=== PATIENT | male | born 1995 | race American Indian/Alaskan Native ===

== ENCOUNTER 2019-02-10 23:02 | Emergency (ER) | payer BC ==
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
[2019-02-11] MEDS ORDERED: ACETAMINOPHEN 500 MG TAB ONE (01:19)
== END 2019-02-11 01:21 | disposition home or self-care (01) ==
LOC: ER 23:02
DX: R51 Headache (principal); V49.40XA Driver injured in collision with unspecified motor vehicles in traffic accident, initial encounter
CPT/HCPCS: 99284